=== PATIENT | female | born 1955 | race Caucasian/White ===

== ENCOUNTER 2020-04-19 22:41 | Emergency (ER) | payer OTHER ==
[2020-04-19 23:07] VITALS: BP 99/72; PULSE 100; TEMP 98.1; BMI 24.4
--- OUTSIDE RECORDS SUMMARY | 2020-04-19 23:10 | XMS ---
:1955 Author Organization [facility] Care Team Providers Name Role Phone [id number], [id number] Unavailable Unavailable ADIA AMOS MD Unavailable Unavailable CORNELL BOWER Unavailable Unavailable MD REGINA Unavailable Unavailable HASTICK Unavailable Unavailable Coon Unavailable Unavailable Coon Unavailable Unavailable Coon Unavailable Unavailable Coon Unavailable Unavailable Coon Unavailable Unavailable Coon Unavailable Unavailable [facility] Unavailable Unavailable Perla Unavailable Unavailable Perla Unavailable Unavailable Perla Unavailable Unavailable Perla Unavailable Unavailable Re-disclosure Warning The records that you are about to access may contain information from federally- assisted alcohol or drug abuse programs. If such information is present, then the following federally mandated warning applies: This information has been disclosed to you from records protected by federal confidentiality rules (42 CFR part 2). The federal rules prohibit you from making any further disclosure of this information unless further disclosure is expressly permitted by the written consent of the person to whom it pertains or as otherwise permitted by 42 CFR part 2. A general authorization for the release of medical or other information is NOT sufficient for this purpose. The Federal rules restrict any use of the information to criminally investigate or prosecute any alcohol or drug abuse patient.The records that you are about to access may contain highly sensitive health information, the redisclosure of which is protected by Article 27-F of the [place] State Public Health law. If you continue you may haveaccess to information: Regarding HIV / AIDS; Provided by facilities licensed or operated by the [facility] Office of Mental Health; or Provided by the [facility] Office for People With Developmental Disabilities. If such information is present, then the following [facility] mandated warning applies: This information has been disclosed to you from confidential records which are protected by state law. State law prohibits you from making any further disclosure of this information without the specific written consent of the person to whom it pertains, or as otherwise permitted by law. Any unauthorized further disclosure in violation of state law may result in a fine or usp sentence or both. A general authorization for the release of medical or other information is NOT sufficient authorization for further disclosure. Allergies and Adverse Reactions Type Description Substance Reaction Status Data Source(s ) Propensity to Propensity to Propensity to NEXTG EN ([facility] adverse reactions adverse reactions adverse reactions [facility] (disorder) (disorder) (disorder) [facility]) Family History Family Member Family Member Family Member Date of Description Data Source(s) Name Gender Status Status Unknown Male Diagnosis 07/17/2018 [facility] ([facility] 12:00:00 AM [facility]) Encounters Encounter Providers Location Date Indications Data Source(s ) Outpatient Attender: [id number] 02/20/2020 [facility] ([facility] 11:35:19 AM Care [facility]) EDT Patient admitted. Outpatient Attender: [address] 09/10/2019 10:22:03 AM [facility] ([facility]) Patient admitted. Outpatient Attender: [address] 09/08/2019 11:59:43 AM [facility] ([facility]) Patient admitted. Attender: [facility] 12/16/2018 [facility] ([facility] 10:24:00 AM EDT - [facility] Medical 12/16/2018 [facility]) 10:24:00 AM EDT Outpatient 11/03/2018 [facility] ([place] 02:37:40 PM [facility]) Outpatient 11/03/2018 [facility] ([place] 02:37:24 PM [facility]) Outpatient Attender: SATHISH Otoole 10/06/2018 [facility] 10:32:00 AM EDT Medical C enter AMMIRAdmitter: SATHISH SARABIA AMMIRReferrer: AMMIJa SARABIA AMMIR OutpatientOFFICE/ Attender: Wanda Brambila 10/06/2018 [facility] ([facility] OUTPATIENT VISIT, [facility] [place] 10:32:00 AM EDT - [facility] 10/06/2018 Center) 10:32:00 AM EDT Outpatient 10/06/2018 [facility] 10:29:00 AM EDT Medical C enter Outpatient 10/06/2018 [facility] 12:00:00 AM EDT Medical C enter Outpatient STV 09/19/2018 [facility] 10:43:00 AM EST Hospital Attender: 09/19/2018 [facility] [id number] 10:43:00 AM EST Hos pital [id number] Attender: Millis 09/10/2018 [facility] ([facility] 10:16:00 AM EST [facility] 09/10/2018 Center) 10:16:00 AM EST OutpatientOFFICE/ [facility] 07/17/2018 [facility] ([facility] OUTPATIENT VISIT, [facility] [place] 09:27:00 AM EST [facility] 07/17/2018 Center) 09:27:00 AM EST Outpatient Attender: DANDRE REESE 06/05/2018 [facility] herman DASAttender: 09:00:00 AM EST - Hospi sumit CHEEK 04/05/2020 KELLEHERAdmitter 09:00:00 AM EDT : ADELA ZAPATA Discharge cancelled. Disregard status an d discharged date. Attender: [id number] 2017 09:00:00 [facility] Veronica [id number] AM EST Hospital Attender: [id number] 2017 09:13:00 [facility] [id number] AM EDT Hospital Attender: [id number] 2017 10:35:00 [facility] [id number] AM EDT Hospital Attender: [id number] 2017 01:46:00 [facility] SALMERON_[id number] PM EDT Hospital Attender: [id number] 2009 09:25:00 [facility] SALMERON_[id number] AM EDT Hospital Attender: [id number] 2009 07:48:00 [facility] SALMERON_[id number] PM EDT Hospital Attender: [id number] 2006 12:00:00 [facility] SALMERON_[id number] AM EST Hospital Medications Medication Brand Start Product Dose Route Administrative Pharmacy [facility] Indications Reaction Description Data Name Date Form Instructions Instructions Source(s) duloxetine DULoxe ORAL complet DULoxet ine [facility] 40 MG jose l 2019 Capsu ed HCl - 40 MG [facility] Delayed HCl - 12:00: le ORAL Hospital Release 40 MG 00 AM Capsule, Oral ORAL EDT Delayed Capsule Capsul Release e, Delaye d Releas e duloxetine DULoxe ORAL complet DULoxet ine [facility] 40 MG jose l 2019 Capsu ed HCl - 40 MG [facility] Delayed HCl - 12:00: le ORAL Hospital Release 40 MG 00 AM Capsule, Oral ORAL EDT Delayed Capsule Capsul Release e, Delaye d Releas e duloxetine Cymbal ORAL complet Cymbalt a - [facility] 20 MG 2019 Capsu ed 20 MG ORAL [facility] Delayed 20 MG 12:00: le Capsule, Hospi sumit Release ORAL 00 AM Delayed Oral Capsul EDT Release Capsule e, [Cymbalta] Delaye d Releas e Trazodone traZOD ORAL complet traZODon e [facility] Hydrochlori one 2019 Table ed hydrochlorid [facility] 150 MG hydroc 12:00: t e - 150 MG Hospital Oral Tablet hlorid 00 AM ORAL Table t e - EDT 150 MG ORAL Tablet duloxetine Cymbal ORAL complet Cymbalt a - [facility] 20 MG 2019 Capsu ed 20 MG ORAL [facility] Delayed 20 MG 12:00: le Capsule, Hospi sumit Release ORAL 00 AM Delayed Oral Capsul EDT Release Capsule e, [Cymbalta] Delaye d Releas e duloxetine Cymbal ORAL complet Cymbalt a - [facility] 20 MG 2019 Capsu ed 20 MG ORAL [facility] Delayed 20 MG 12:00: le Capsule, Hospi sumit Release ORAL 00 AM Delayed Oral Capsul EDT Release Capsule e, [Cymbalta] Delaye d Releas e duloxetine Cymbal ORAL complet Cymbalt a - [facility] 20 MG 2019 Capsu ed 20 MG ORAL [facility] Delayed 20 MG 12:00: le Capsule, Hospi sumit Release ORAL 00 AM Delayed Oral Capsul EDT Release Capsule e, [Cymbalta] Delaye d Releas e Citalopram CeleXA ORAL complet CeleXA - 20 [facility] 20 MG Oral - 20 2019 Table ed MG ORAL [place] [facility] Tablet MG 12:00: t Tablet Hospital [Celexa] ORAL 00 AM Tablet EDT duloxetine DULoxe ORAL complet DULoxet ine [facility] 60 MG jose l 2018 Capsu ed HCl - 60 MG [facility] Delayed HCl - 12:00: le ORAL Hospital Release 60 MG 00 AM Capsule, Oral ORAL EST Delayed Capsule Capsul Release e, Delaye d Releas e Trazodone traZOD ORAL complet traZODon e [facility] Hydrochlori one 2018 Table ed hydrochlorid [facility] 50 MG hydroc 12:00: t e - 50 MG Ho spital Oral Tablet hlorid 00 AM ORAL Table t e - 50 EST MG ORAL Tablet duloxetine Cymbal ORAL complet Cymbalt a - [facility] 20 MG 2018 Capsu ed 20 MG ORAL [facility] Delayed 20 MG 12:00: le Capsule, Hospi sumit Release ORAL 00 AM Delayed Oral Capsul EST Release Capsule e, [Cymbalta] Delaye d Releas e Trazodone traZOD ORAL complet traZODon e [facility] Hydrochlori one 2018 Table ed hydrochlorid [facility] 100 MG hydroc 12:00: t e - 100 MG Hospital Oral Tablet hlorid 00 AM ORAL Table t e - EST 100 MG ORAL Tablet Trazodone traZOD ORAL complet traZODon e [facility] Hydrochlori one 2018 Table ed hydrochlorid [facility] 50 MG hydroc 12:00: t e - 50 MG Ho spital Oral Tablet hlorid 00 AM ORAL Table t e - 50 EDT MG ORAL Tablet duloxetine DULoxe ORAL complet DULoxet ine [facility] 60 MG jose l 2018 Capsu ed HCl - 60 MG [facility] Delayed HCl - 12:00: le ORAL Hospital Release 60 MG 00 AM Capsule, Oral ORAL EDT Delayed Capsule Capsul Release e, Delaye d Releas e Trazodone traZOD ORAL complet traZODon e [facility] 2018 Table ed hydrochlorid [facility] 100 MG hydroc 12:00: t e - 100 MG Hospital Oral Tablet hlorid 00 AM ORAL Table t e - EDT 100 MG ORAL Tablet duloxetine Cymbal ORAL complet Cymbalt a - [facility] 20 MG ta - 2018 Capsu ed 20 MG ORAL [facility] Delayed 20 MG 12:00: le Capsule, Hospi sumit Release ORAL 00 AM Delayed Oral Capsul EDT Release Capsule e, [Cymbalta] Delaye d Releas e duloxetine DULoxe ORAL complet DULoxet ine [facility] 60 MG jose l 2018 Capsu ed HCl - 60 MG [facility] Delayed HCl - 12:00: le ORAL Hospital Release 60 MG 00 AM Capsule, Oral ORAL EDT Delayed Capsule Capsul Release e, Delaye d Releas e Trazodone traZOD ORAL complet traZODon e [facility] 2018 Table ed hydrochlorid [facility] 100 MG hydroc 12:00: t e - 100 MG Hospital Oral Tablet hlorid 00 AM ORAL Table t e - EDT 100 MG ORAL Tablet duloxetine DULoxe ORAL complet DULoxet ine [facility] 60 MG jose l 2018 Capsu ed HCl - 60 MG [facility] Delayed HCl - 12:00: le ORAL Hospital Release 60 MG 00 AM Capsule, Oral ORAL EDT Delayed Capsule Capsul Release e, Delaye d Releas e duloxetine DULoxe ORAL complet DULoxet ine [facility] 60 MG jose l 2018 Capsu ed HCl - 60 MG [facility] Delayed HCl - 12:00: le ORAL Hospital Release 60 MG 00 AM Capsule, Oral ORAL EDT Delayed Capsule Capsul Release e, Delaye d Releas e Trazodone traZOD [facility]AL [facility] Table ed hydrochlorid [facility] 100 MG hydroc 12:00: t e - 100 MG Hospital Oral Tablet hlorid 00 AM ORAL Table t e - EDT 100 MG ORAL Tablet Trazodone traZOD [facility] Table ed hydrochlorid [facility] 150 MG hydroc 12:00: t e - 150 MG Hospital Oral Tablet hlorid 00 AM ORAL Table t e - EDT 150 MG ORAL Tablet duloxetine DULoxe ORAL complet DULoxet ine [facility] 60 MG jose l 2018 Capsu ed HCl - 60 MG [facility] Delayed HCl - 12:00: le ORAL Hospital Release 60 MG 00 AM Capsule, Oral ORAL EDT Delayed Capsule Capsul Release e, Delaye d Releas e duloxetine DULoxe ORAL complet DULoxet ine [facility] 60 MG jose l 2018 Capsu ed HCl - 60 MG [facility] Delayed HCl - 12:00: le ORAL Hospital Release 60 MG 00 AM Capsule, Oral ORAL EDT Delayed Capsule Capsul Release e, Delaye d Releas e Trazodone traZOD ORAL complet [facility] e [facility] 2018 Table ed hydrochlorid [facility] 150 MG hydroc 12:00: t e - 150 MG Hospital Oral Tablet hlorid 00 AM ORAL Table t e - EDT 150 MG ORAL Tablet Trazodone traZOD ORAL complet [facility]ODon e [facility] 2018 Table ed hydrochlorid [facility] 100 MG hydroc 12:00: t e - 100 MG Hospital Oral Tablet hlorid 00 AM ORAL Table t e - EDT 100 MG ORAL Tablet duloxetine DULoxe ORAL complet DULoxet ine [facility] 60 MG jose l 2018 Capsu ed HCl - 60 MG [facility] Delayed HCl - 12:00: le ORAL Hospital Release 60 MG 00 AM Capsule, Oral ORAL EDT Delayed Capsule Capsul Release e, Delaye d Releas e 200 ACTUAT ProAir .00 RESPIR active 200 AC TUAT NEXTGEN Albuterol HFA 90 2018 {puff ATORY Albuterol ( [facility] 0.09 mcg/ac 12:00: } (INHAL 0.09 [place] MG/ACTUAT tuatio 00 AM ATION) MG/ACTUAT Medical Metered n EDT Metered Dose Cent er) Dose aeroso Inhaler Inhaler l [ProAir] [ProAir] inhale ProAir HFA r 90 mcg/actuati on aerosol inhaler Guaifenesin Tussin .00 ORAL active take 1 NEXTGEN 400 MG Oral 400 mg 2019 {tbl} tablet by ([facility] Tablet tablet 12:00: oral route [facility] Tussin 400 00 AM every 4 Medic al mg tablet EDT hours as Center ) needed cetirizine Zyrtec .00 ORAL active take 1 N EXTGEN hydrochlori 10 mg 2019 {tbl} tablet by ( [facility] de 10 MG tablet 12:00: oral route [facility] Oral Tablet 00 AM every day Me dical Zyrtec 10 EDT Center) mg tablet Trazodone traZOD ORAL complet traZODon e [facility] Hydrochlori one 2018 Table ed hydrochlorid [facility] 150 MG hydroc 12:00: t e - 150 MG Hospital Oral Tablet hlorid 00 AM ORAL Table t e - EST 150 MG ORAL Tablet duloxetine DULoxe ORAL complet DULoxet ine [facility] 60 MG jose l 2019 Capsu ed HCl - 60 MG [facility] Delayed HCl - 12:00: le ORAL Hospital Release 60 MG 00 AM Capsule, Oral ORAL EST Delayed Capsule Capsul Release e, Delaye d Releas e Trazodone traZOD ORAL complet traZODon e [facility] Hydrochlori one 2018 Table ed hydrochlorid [facility] 100 MG hydroc 12:00: t e - 100 MG Hospital Oral Tablet hlorid 00 AM ORAL Table t e - EST 100 MG ORAL Tablet Trazodone traZOD ORAL complet traZODon e [facility] Hydrochlori one 2018 Table ed hydrochlorid [facility] 100 MG hydroc 12:00: t e - 100 MG Hospital Oral Tablet hlorid 00 AM ORAL Table t e - EST 100 MG ORAL Tablet duloxetine DULoxe ORAL complet DULoxet ine [facility] 60 MG jose l 2019 Capsu ed HCl - 60 MG [facility] Delayed HCl - 12:00: le ORAL Hospital Release 60 MG 00 AM Capsule, Oral ORAL EST Delayed Capsule Capsul Release e, Delaye d Releas e Trazodone traZOD ORAL complet traZODon e [facility] Hydrochlori one 2018 Table ed hydrochlorid [facility] 150 MG hydroc 12:00: t e - 150 MG Hospital Oral Tablet hlorid 00 AM ORAL Table t e - EST 150 MG ORAL Tablet Ibuprofen ibupro ORAL active take 1 NE XTGEN 400 MG Oral fen 2017 {tbl} tablet by (S aint Tablet 400 mg 12:00: oral route [facility] ibuprofen tablet 00 AM every 4 - 6 Medical 400 mg EST hours as Center) tablet needed 200 ACTUAT ProAir RESPIR complet 200 A CTUAT NEXTGEN Albuterol HFA 90 2017 {puff ATORY ed Albuterol ( [facility] 0.09 mcg/ac 12:00: } (INHAL 0.09 [place] MG/ACTUAT tuatio 00 AM ATION) MG/ACTUAT Medical Metered n EST Metered Dose Cent er) Dose aeroso Inhaler Inhaler l [ProAir] [ProAir] inhale ProAir HFA r 90 mcg/actuati on aerosol inhaler pregabalin Lyrica ORAL active pregabal in NEXTGEN 50 MG Oral 50 mg 2017 {caps 50 MG Oral ( [facility] Capsule capsul 12:00: ule} Capsule Jeet hs [Lyrica] e 00 AM [Lyrica] Medica l Lyrica 50 EST Center) mg capsule duloxetine Cymbal ORAL active duloxeti ne [facility]EXT[facility] 60 MG ta 60 2017 {caps 60 MG ([facility] Delayed mg 12:00: ule} Delayed [place] Release capsul 00 AM Release Oral M edical Oral e,jatin EST Capsule Center) Capsule yed [Cymbalta] [Cymbalta] releas Cymbalta 60 e mg capsule,del ayed release Azithromyci azithr ORAL complet take 2 NEXTGEN n 250 MG omycin 2017 {tbl} ed tablet by (Sa int Oral Tablet 250 mg 12:00: oral rout e [place] azithromyci tablet 00 AM every day Medical n 250 mg EST for 1 day Center ) tablet then 1 tablet (250 mg) by oral route once daily for 4 days Trazodone trazod 12/27/ 2 ORAL active take 2 NE XTGEN Hydrochlori one 2017 {tbl} tablet by (S aint de 100 MG 100 mg 12:00: oral route [place] Oral Tablet tablet 00 AM every day Medical trazodone EST after meals Real ter) 100 mg tablet Guaifenesin Tussin .00 ORAL complet take 1 NEXTGEN 400 MG Oral 400 mg 2017 {tbl} ed tablet by ([facility] Tablet tablet 12:00: oral route [facility] Tussin 400 00 AM every 4 Medic al mg tablet EST hours as Center ) needed Trazodone traZOD ORAL [facility] 2017 Table ed hydrochlorid [facility] 50 MG hydroc 12:00: t e - 50 MG Ho spital Oral Tablet hlorid 00 AM ORAL Table t e - 50 EST MG ORAL Tablet Trazodone traZOD ORAL complet traZODon e [facility] Hydrochlori 2017 Table ed hydrochlorid [facility] 150 MG hydroc 12:00: t e - 150 MG Hospital Oral Tablet hlorid 00 AM ORAL Table t e - EST 150 MG ORAL Tablet duloxetine DULoxe ORAL complet DULoxet ine [facility] 60 MG jose l 2018 Capsu ed HCl - 60 MG [facility] Delayed HCl - 12:00: le ORAL Hospital Release 60 MG 00 AM Capsule, Oral ORAL EST Delayed Capsule Capsul Release e, Delaye d Releas e duloxetine DULoxe ORAL complet DULoxet ine [facility] 60 MG jose l 2018 Capsu ed HCl - 60 MG [facility] Delayed HCl - 12:00: le ORAL Hospital Release 60 MG 00 AM Capsule, Oral ORAL EST Delayed Capsule Capsul Release e, Delaye d Releas e Trazodone traZOD ORAL complet [facility] e [facility] 2017 Table ed hydrochlorid [facility] 150 MG hydroc 12:00: t e - 150 MG Hospital Oral Tablet hlorid 00 AM ORAL Table t e - EST 150 MG ORAL Tablet Trazodone traZOD ORAL complet traZODon e [facility] Hydrochlori 2017 Table ed hydrochlorid [facility] 100 MG hydroc 12:00: t e - 100 MG Hospital Oral Tablet hlorid 00 AM ORAL Table t e - EST 100 MG ORAL Tablet duloxetine DULoxe 10/31/ 1 ORAL complet DULoxet ine [facility] 60 MG jose l 2018 Capsu ed HCl - 60 MG [facility] Delayed HCl - 12:00: le ORAL Hospital Release 60 MG 00 AM Capsule, Oral ORAL EDT Delayed Capsule Capsul Release e, Delaye d Releas e Trazodone traZOD ORAL complet traZODon e [facility] Hydrochlori one 2017 Table ed hydrochlorid [facility] 50 MG hydroc 12:00: t e - 50 MG Ho spital Oral Tablet hlorid 00 AM ORAL Table t e - 50 EDT MG ORAL Tablet duloxetine DULoxe ORAL complet DULoxet ine [facility] 30 MG jose l 2017 Capsu ed HCl - 30 MG [facility] Delayed HCl - 12:00: le ORAL Hospital Release 30 MG 00 AM Capsule, Oral ORAL EDT Delayed Capsule Capsul Release e, Delaye d Releas e Insurance Providers Payer name Policy type Policy ID Covered Covered democrat's Policy P oraila / Coverage democrat ID relationship to Vásquez Inf ormation type vásquez HIP MEDICAID [id number] SP [id number] [facility] MVP [id number] Self [id number] 500 [employer] MVP [id number] Self [id number] 500 HARMONIOUS MEDICAID OP [id number] Self [id number] SELF PAY 0 Self 0 [facility] MVP [id number] Self [id number] 500 HARMONIOUS SELF PAY 0 Self 0 MEDICAID OP [id number] Self [id number] [facility] MVP [id number] Self [id number] 500 [employer] [facility] MVP [id number] Self [id number] 500 [employer] [place] MVP/HHP [id number] self [id number] MVP/HHP O [id number] 01 [id number] 500 MVP/HHP O [id number] 01 [id number] 500 Problems, Conditions, and Diagnoses Code Display Name Description Problem Type Effective Dates Data Source(s) 085961571 Nicotine Nicotine Problem ROSANA ( dependence with dependence with [facility] current use current use Medical Center) R06.02 Shortness of SHORTNESS OF Diagnosis 10/06/2018 [facility] breath BREATH 10:32:00 AM EDT Medical C enter Surgeries/Procedures Procedure Description Date Indications Data Source(s) OFFICE/OUTPATIENT 10/06/2018 ROSANA Jarrett VISIT, EST 12:00:00 AM EDT - Medical Ce nter) 10/06/2018 12:00:00 AM EDT OFFICE/OUTPATIENT 07/17/2018 NEXTGEN (Moira Jarrett VISIT, NEW 12:00:00 AM EST - Medical Ce nter) 07/17/2018 12:00:00 AM EST Social History Code Duration Value Status Description Data Source(s ) Caffeine Use 10/06/2018 completed NEXTGEN (Sy nt Details 12:00:00 AM [facility]) 10/06/2018 Occasional completed Occasional [facility] ([facility] 12:00:00 AM cigarette smoker cigarette smoker [facility]) Smoking 10/06/2018 Unknown if ever completed Unknown if ever [facility] ([facility] 12:00:00 AM smoked smoked [facility]) Smoking 06/05/2018 Current Every completed Current Every Day [facility] 12:00:00 PM Day Smoker Smoker Hospital EST Smoking 06/05/2018 Current Every completed Current Every Day [facility] 12:00:00 PM Day Smoker Smoker Hospital EST Smoking 06/05/2018 Current Every completed Current Every Day [facility] 12:[facility]:00 PM Day Smoker Smoker Hospital EST Smoking 06/05/2018 Current Every completed Current Every Day [facility] 12:00:00 PM Day Smoker Smoker Hospital EST Smoking 06/05/2018 Current Every completed Current Every Day [facility] 12:00:00 PM Day Smoker Smoker Hospital EST Smoking 06/05/2018 Current Every completed Current Every Day [facility] 12:00:00 PM Day Smoker Smoker Hospital EST Smoking Unknown if ever completed Unknown if ever [facility] smoked smoked [facility] Center Alcohol Use completed NEXT[facility] ([facility]) Vital Signs ID Date Data Source UNK Name Value Range Interpretation Code Description Data Source(s) Oxygen saturation 97 % 97 % [facility] in Arterial blood [facility] by Pulse oximetry [facility]) Body mass index 24.27 kg/m2 24.27 kg/m2 [facility] ([facility]) Body temperature 36.[address] [facility] ([facility]) Heart rate 86 /min 86 /min [facility] ([facility]) Diastolic blood 58 mm[Hg] 58 mm[Hg] [facility] ( [facility]) Systolic blood 110 mm[Hg] 110 mm[Hg] [facility] Body weight 62.[address] [facility] ([facility]) Body height 160.[address] [facility] ([facility]) Oxygen saturation 96 % 96 % NEXTGEN ([facility] in Arterial blood [facility] by Pulse [facility]) Body mass index 24.45 kg/m2 24.45 kg/m2 [facility] ([facility] (BMI) [Ratio] [facility]) Body temperature 36.89 Ksenia 36.89 Ksenia [facility] Heart rate 77 /min 77 /min [facility] ([facility]) Diastolic blood 72 mm[Hg] 72 mm[Hg] [facility] ( [facility]) Systolic blood 121 mm[Hg] 121 mm[Hg] [facility] Body weight 62.[address] [facility] ([facility]) Body height 160.[address] [facility] ([facility]) Patient Treatment Plan of Care Planned Activity Planned Date Details Description Data Source (s) cetirizine hydrochloride 10/06/2018 12:00:00 [facility]EXT[facility] ([facility] 10 MG Oral Tablet [facility]) 200 ACTUAT Albuterol 0.09 10/06/2018 12:00:00 NEXT[facility] ([facility] MG/ACTUAT Metered Dose [facility] Medical Inhaler [ProAir] Center) Guaifenesin 400 MG Oral 10/06/2018 12:00:00 [facility]EXT[facility] ([facility] Tablet AM [facility]) Ibuprofen 400 MG Oral 07/17/2018 12:00:00 [facility] Tablet [facility]) Trazodone Hydrochloride 07/17/2018 12:00:00 [facility] 100 MG Oral Tablet [facility]) pregabalin 50 MG Oral 07/17/2018 12:00:00 [facility] Capsule [Lyrica] [facility]) duloxetine 60 MG Delayed 07/17/2018 12:00:00 [facility]EXT[facility] ([facility] Release Oral Capsule [facility] [[facility]] [facility]) Guaifenesin 400 MG Oral 07/17/2018 12:00:00 [facility] ([facility] Tablet [facility]) 200 ACTUAT Albuterol 0.09 07/17/2018 12:00:00 NEXTGEN ([facility] MG/ACTUAT Metered Dose [facility] Inhaler [ProAir] [facility]) Azithromycin 250 MG Oral 07/17/2018 12:00:00 [facility] ([facility] Tablet [facility])
--- NOTE | 2020-04-19 23:36 | PDOC ---
History of Present Illness - General Chief Complaint: Laceration Stated Complaint: FINGER LACERATION Time Seen by Provider: 04/19/20 23:34 History Source: Patient - History of Present Illness Initial Comments: 04/20/20 00:25 64-year-old female complaining of distal tip proximal to the nail of the left index finger laceration after crushing it in between a brick and a metal piece 1 hour prior to arrival. Patient reports that her tetanus is up-to-date. Reports sensation to the distal end of finger and full ROM. Past History - Medical History Allergies/Adverse Reactions: Allergies Allergy/AdvReac Type Severity Reaction Status Date / Time duloxetine Allergy Verified 04/20/20 00:31 Home Medications: Ambulatory Orders Cephalexin Monohydrate [Keflex -] 250 mg PO Q8H #21 capsule 04/20/20 Asthma: Yes COPD: No - Psycho-Social/Smoking History Smoking History: Current every day smoker Have you smoked in the past 12 months: Yes Number of Cigarettes Smoked Daily: 10 Information on smoking cessation initiated: Yes - Substance Abuse Hx (Audit-C & DAST Scrn) How often the patient has a drink containing alcohol: Monthly or less Score: In Men: 4 or > Positive; In Women: 3 or > Positive: 1 Screen Result (Pos requires Nsg. Audit-10AR): Negative *Physical Exam - Vital Signs Last Vital Signs Temp Pulse Resp BP Pulse Ox 98.1 F 100 H 20 99/72 99 04/19/20 22:50 04/19/20 22:50 04/19/20 22:50 04/19/20 22:50 04/19/20 22:50 - Physical Exam General Appearance: Yes: Appropriately Dressed Extremity: positive: Other (left index dital tip proximal to the nail) Integumentary: positive: Normal Color, Dry, Warm Neurologic: positive: Fully Oriented, Alert Procedures - Consent Consent obtained: Verbal, From Patient - Laceration/Wound Repair Left Distal Dorsal 1st digit Wound Length: to 2.5 cm Wound Explored: clean Wound's Depth, Shape: irregular Irrigated w/ Saline: Yes Betadine Prep: Yes Anesthesia: 1% Lidocaine Wound Debrided: minimal Wound Repaired With: Sutures Suture Size/Type: 4:0 Number of Sutures: 5 Layer Closure: No Sterile Dressing Applied: Yes (bacitracin and sterile dressing applied) ED Progress Note - Progress Note Progress Note: 04/20/20 00:28 A: finger laceration P: xray: see procedure note. Discharge - Discharge Information Problems reviewed: Yes Clinical Impression/Diagnosis: Laceration of finger of left hand Qualifiers: Encounter type: initial encounter Finger: index finger Damage to nail status: without damage Foreign body presence: without foreign body Qualified Code(s): S61.211A - Laceration without foreign body of left index finger without damage to nail, initial encounter Condition: Good Disposition: HOME - Additional Discharge Information Prescriptions: Cephalexin Monohydrate [Keflex -] 250 mg PO Q8H #21 capsule - Follow up/Referral - Patient Discharge Instructions Patient Printed Discharge Instructions: DI for Laceration Repair Additional Instructions: Keep area clean dry and intact Keep dressing on until tomorrow please follow up with your doctor in 2 days for a wound check take cephalexin as prescribed. If any increased bleeding through the dressing return immediately to emergency department Keep area clean dry and intact bacitracin x3 days, then let it dry out Please return in 10 days for suture removal. Please return immediately to emergency department with any increased redness, swelling, signs of infection - Post Discharge Activity
--- NOTE | 2020-04-19 23:38 | PDOC ---
*Physical Exam - Vital Signs Last Vital Signs Temp Pulse Resp BP Pulse Ox 98.1 F 100 H 20 99/72 99 04/19/20 22:50 04/19/20 22:50 04/19/20 22:50 04/19/20 22:50 04/19/20 22:50 Medical Decision Making - Medical Decision Making 04/19/20 23:38 Patient seen by the advanced practice provider under my supervision. Ancillary testing reviewed as necessary. I agree with plan as outlined by the advanced practice provider.
[2020-04-20] MEDS ORDERED: ACETAMINOPHEN 500 MG TABLET (FP) PO ONE (00:32)
[2020-04-20] MEDS ORDERED: ACETAMINOPHEN 325 MG TABLET (FP) ONE (00:37)
== END 2020-04-20 01:02 | disposition home or self-care (01) ==
LOC: JER 22:41
PROC: 0HQGXZZ Repair Left Hand Skin, External Approach (ICD-10-PCS; principal; 2020-04-19)
DX: S61.211A Laceration without foreign body of left index finger without damage to nail, initial encounter (principal)
CPT/HCPCS: 12001-25; 73140-TC-LT-FY; 99283-25

== ENCOUNTER 2022-02-27 15:45 | Emergency (ER) | payer OTHER ==
[2022-02-27 16:05] VITALS: BP 160/79; PULSE 82; RESP 16; TEMP 97.9; BMI 22.8
[2022-02-27] MEDS ORDERED: ACETAMINOPHEN 500 MG TABLET (FP) PO ONE (18:27)
[2022-02-27] MEDS ORDERED: ACETAMINOPHEN 500 MG TABLET (FP) ONE (18:43)
[2022-02-27 19:28] LABS: PH,URINE 5.5 (5.0-8.0); URINE APPEARANCE CLEAR; URINE BILIRUBIN NEGATIVE (NEGATIVE); URINE COLOR YELLOW; URINE GLUCOSE (UA) NEGATIVE (NEGATIVE); URINE KETONE NEGATIVE (NEGATIVE); URINE NITRITE NEGATIVE (NEGATIVE); URINE PROTEIN NEGATIVE (NEGATIVE); URINE UROBILINOGEN 0.2 mg/dL (0.2-1.0)
[2022-02-27 19:29] LABS: URINE LEUK ESTERASE TRACE (NEGATIVE)
== END 2022-02-27 20:00 | disposition home or self-care (01) ==
LOC: JER 15:45
DX: R10.31 Right lower quadrant pain (principal)
CPT/HCPCS: 81003; 87086; 99283-25

== ENCOUNTER 2022-03-07 14:27 | Emergency (ER) | payer OTHER ==
[2022-03-07 15:05] VITALS: BP 152/84; PULSE 77; RESP 20; TEMP 98.2; BMI 21.9
[2022-03-07] MEDS ORDERED: ACETAMINOPHEN 1000 MG/100 ML BAG IVPB ONE (15:30)
[2022-03-07] MEDS ORDERED: ACETAMINOPHEN INJECTION 100 ML IVPB ONE (15:49)
[2022-03-07 15:59] LABS: HEMATOCRIT 46.4 % (32.4-45.2); HEMOGLOBIN 15.7 G/dL (10.7-15.3); MCH 29.4 pg (25.7-33.7); MCHC 33.8 g/dl (32.0-36.0); MEAN CELL VOLUME 86.8 fl (80-96); MEAN PLT VOLUME 8.6 fl (7.5-11.1); RBC 5.34 10^6/uL (3.60-5.2); RDW 14.3 % (11.6-15.6); WHITE BLOOD COUNT 4.9 10^3/uL (4.0-10.8)
[2022-03-07 16:18] LABS: BILIRUBIN,TOTAL 0.8 mg/dl (0.2-1); CALCIUM 9.5 mg/dl (8.5-10); CREATININE 0.5 mg/dl (0.55-1.3); TOT PROT 6.6 g/dl (6.4-8.2)
[2022-03-07 16:52] LABS: PLATELET ESTIMATE ADEQUATE
[2022-03-07] MEDS ORDERED: KETOROLAC TROMETHAMINE 15 MG/ML VIAL IVPUSH ONE (17:25)
[2022-03-07] MEDS ORDERED: KETOROLAC TROMETHAMINE 15 MG/ML VIAL ONE (18:02)
== END 2022-03-07 19:01 | disposition home or self-care (01) ==
LOC: FER 14:27
PROC: 3E0333Z Introduction of Anti-inflammatory into Peripheral Vein, Percutaneous Approach (ICD-10-PCS; principal; 2022-03-07)
PROC: 3E0333Z Introduction of Anti-inflammatory into Peripheral Vein, Percutaneous Approach (ICD-10-PCS; 2022-03-07)
DX: K40.90 Unilateral inguinal hernia, without obstruction or gangrene, not specified as recurrent (principal)
CPT/HCPCS: 36415; 74177-TC; 80053; 81003; 83690; 85027; 87086; 99285-25; Q9967

== ENCOUNTER 2022-04-19 04:00 | Day surgery (SDC) | payer OTHER ==
[2022-04-18 16:36] VITALS: BMI 22.4
[2022-04-19] MEDS ORDERED: LIDOCAINE HCL/PF (2%) 40 MG/2 ML VIAL ONE (07:31)
[2022-04-19] MEDS ORDERED: PROPOFOL 20 ML ONE (07:31)
[2022-04-19] MEDS ORDERED: LIDOCAINE HCL 1%, 10 MG/ML (20ML VIAL) ONE (07:31)
[2022-04-19] MEDS ORDERED: BENZOIN/ALOE VERA/STORAX/TOLU 58 ML BOTTLE ONE (07:32)
[2022-04-19] MEDS ORDERED: ROCURONIUM BROMIDE 50 MG/5 ML SYRINGE ONE (07:32)
[2022-04-19] MEDS ORDERED: BUPIVACAINE HCL/PF 0.5% (5MG/ML) 10 ML VIAL ONE ×2 (07:32→07:54)
[2022-04-19] MEDS ORDERED: SEVOFLURANE 250 ML BTL ONE (07:33)
[2022-04-19] MEDS ORDERED: MIDAZOLAM HCL 2 MG/2 ML SINGLE DOSE VIAL ONE (07:35)
[2022-04-19] MEDS ORDERED: DEXAMETHASONE SOD PHOSPHATE 10 MG/1 ML VIAL ONE (07:54)
[2022-04-19] MEDS ORDERED: ceFAZolin 2 GRAM PREMIX BAG IVPB ONE (08:29)
[2022-04-19] MEDS ORDERED: KETAMINE HCL 200 MG/20 ML VIAL ONE (08:31)
[2022-04-19] MEDS ORDERED: LIDOCAINE HCL 1%, 10 MG/ML (20ML VIAL) INF ONE (08:40)
[2022-04-19] MEDS ORDERED: BUPIVACAINE HCL/PF 0.5% (5MG/ML) 10 ML VIAL IJ ONE (08:40)
[2022-04-19] MEDS ORDERED: NEOSTIGMINE METHYLSULFATE 0.5 MG/ML - 10 ML MDV ONE (09:29)
[2022-04-19] MEDS ORDERED: GLYCOPYRROLATE 0.2 MG/1 ML VIAL ONE (09:29)
[2022-04-19] MEDS ORDERED: oxyCODONE HCL 5 MG TABLET PO PRN (10:42)
[2022-04-19] MEDS ORDERED: ONDANSETRON 4 MG/2 ML VIAL IVPUSH PRN (10:42)
[2022-04-19] MEDS ORDERED: ACETAMINOPHEN 1000 MG/100 ML BAG IVPB ONE (10:43)
[2022-04-19] MEDS ORDERED: LACTATED RINGERS SOLUTION 1,000 ML IV SCH (10:45)
[2022-04-19] MEDS ORDERED: ALBUTEROL SO4 0.083% IH SOL 2.5 MG/3 ML VIAL.NEB. NEB ONE ×2 (12:00→12:10)
[2022-04-19] MEDS ORDERED: oxyCODONE HCL 5 MG TABLET ONE (12:49)
[2022-04-19 13:06] VITALS: RESP 18
[2022-04-19 14:49] VITALS: BP 108/71; PULSE 65; TEMP 97.9
== END 2022-04-19 15:15 | disposition home or self-care (01) ==
LOC: JASU-SURG 04:00
PROVIDERS: ATTEND Surgery
PROC: 0YUA0JZ Supplement Bilateral Inguinal Region with Synthetic Substitute, Open Approach (ICD-10-PCS; principal; 2022-04-19 08:37)
DX: K40.20 Bilateral inguinal hernia, without obstruction or gangrene, not specified as recurrent (principal)
CPT/HCPCS: 88302-TC; 88304-TC; 94760; C1781; J1100

== ENCOUNTER 2022-05-09 14:37 | Emergency (ER) | payer OTHER ==
[2022-05-09 14:42] VITALS: BP 124/73; PULSE 72; RESP 18; TEMP 98.1; BMI 22.8
[2022-05-09] MEDS ORDERED: SODIUM CHLORIDE 0.9% 500 ML INFUS.BAG IV ONE (15:36)
[2022-05-09] MEDS ORDERED: KETOROLAC TROMETHAMINE 30 MG/1 ML VIAL IVPUSH ONE (15:36)
[2022-05-09] MEDS ORDERED: METOCLOPRAMIDE HCL INJECTION 10 MG/2 ML VIAL IVPUSH ONE ×2 (15:36→19:41)
[2022-05-09] MEDS ORDERED: METOCLOPRAMIDE HCL INJECTION 10 MG/2 ML VIAL ONE ×2 (15:52→19:48)
[2022-05-09] MEDS ORDERED: KETOROLAC TROMETHAMINE 30 MG/1 ML VIAL ONE (15:53)
[2022-05-09 17:36] LABS: BASO % 0.4 % (0-2.0); EOS % 0.3 % (0-4.5); HEMATOCRIT 44.3 % (32.4-45.2); HEMOGLOBIN 15.1 GM/dL (10.7-15.3); LYMPH % 13.6 % (8-40); MCH 29.7 pg (25.7-33.7); MCHC 34.1 g/dl (32.0-36.0); MEAN CELL VOLUME 87.1 fl (80-96); MEAN PLT VOLUME 8.9 fl (7.5-11.1); NEUT % 80.7 % (42.8-82.8); PLATELET COUNT 244 10^3/uL (134-434); RBC 5.08 M/mm3 (3.60-5.2); RDW 13.6 % (11.6-15.6); WHITE BLOOD COUNT 7.3 K/mm3 (4.0-10.0)
[2022-05-09] MEDS ORDERED: ACETAMINOPHEN 1000 MG/100 ML BAG IVPB ONE (17:39)
[2022-05-09 18:06] LABS: ALBUMIN 3.9 g/dl (3.4-5.0); BILIRUBIN,TOTAL 0.7 mg/dL (0.2-1); CALCIUM 9.2 mg/dL (8.5-10.1); CREATININE 0.5 mg/dL (0.55-1.3)
[2022-05-09] MEDS ORDERED: ACETAMINOPHEN INJECTION 100 ML IVPB ONE (19:11)
[2022-05-09] MEDS ORDERED: SUMATRIPTAN SUCCINATE 6 MG/0.5 ML VIAL SQ ONE (19:52)
[2022-05-09] MEDS ORDERED: SUMATRIPTAN SUCCINATE 6 MG/0.5 ML VIAL ONE (19:54)
== END 2022-05-09 22:15 | disposition home or self-care (01) ==
LOC: JER 14:37
PROC: 3E033GC Introduction of Other Therapeutic Substance into Peripheral Vein, Percutaneous Approach (ICD-10-PCS; principal; 2022-05-09)
DX: G43.909 Migraine, unspecified, not intractable, without status migrainosus (principal)
CPT/HCPCS: 36415; 70450-TC; 80053; 85025; 99285-25

== ENCOUNTER 2022-07-07 14:26 | Emergency (ER) | payer OTHER ==
[2022-07-07 14:40] VITALS: BP 127/78; PULSE 85; RESP 18; TEMP 98.9; BMI 23.0
[2022-07-07] MEDS ORDERED: ACETAMINOPHEN 325 MG TABLET (FP) PO ONE (14:52)
[2022-07-07] MEDS ORDERED: ACETAMINOPHEN 325 MG TABLET (FP) ONE (14:59)
== END 2022-07-07 16:29 | disposition home or self-care (01) ==
LOC: FER 14:26
DX: M79.671 Pain in right foot (principal)
CPT/HCPCS: 73630-TC-RT-FY; 99283-25

== ENCOUNTER 2024-06-30 17:42 | Inpatient (IN) | payer OTHER ==
[2024-06-30] MEDS ORDERED: ALBUTEROL SO4 2.5/IPRATROPIUM 0.5 INH SOL 3 ML VIAL.NEB. NEB ONE (18:03)
[2024-06-30] MEDS: ALBUTEROL SO4 2.5/IPRATROPIUM 0.5 INH SOL 3 ML VIAL.NEB. NEB SCH (18:06)
[2024-06-30] MEDS: methylPREDNISolone NA SUCC 125 MG/2 ML VIAL IVPUSH ONE (18:33)
[2024-06-30] MEDS ORDERED: methylPREDNISolone NA SUCC 125 MG/2 ML VIAL ONE (18:34)
[2024-06-30 18:41] LABS: HEMATOCRIT 41.6 % (32.4-45.2); HEMOGLOBIN 13.8 G/dL (10.7-15.3); MCH 29.5 pg (25.7-33.7); MCHC 33.2 g/dl (32.0-36.0); MEAN CELL VOLUME 88.6 fl (80-96); MEAN PLT VOLUME 9.4 fl (7.5-11.1); PLATELET COUNT 137.2 10^3/uL (134-434); RBC 4.69 10^6/uL (3.60-5.2); WHITE BLOOD COUNT 7.5 10^3/uL (4.0-10.8)
[2024-06-30 18:52] LABS: PLATELET ESTIMATE ADEQUATE
[2024-06-30 18:58] LABS: BILIRUBIN,TOTAL 0.4 mg/dl (0.2-1); CALCIUM 8.9 mg/dl (8.5-10.1); CREATININE 0.5 mg/dl (0.6-1.3); MAGNESIUM 1.7 mg/dL (1.8-2.4); TOT PROT 6.2 g/dl (6.4-8.2)
[2024-06-30] MEDS: MAGNESIUM SULFATE IN WATER 2 GM/50 ML IVPB IVPB ONE (19:25)
[2024-06-30] MEDS: SODIUM CHLORIDE 0.9% 500 ML INFUS.BAG IV ONE (19:26)
[2024-06-30 20:21] LABS: VENOUS BASE EXCESS 1.5 mmol/L (-2-2); VENOUS PCO2 50.2 mmHg (38-52); VENOUS PH 7.362 (7.310-7.410)
[2024-06-30] MEDS ORDERED: AZITHROMYCIN 500 MG VIAL IVPB ONE (22:27)
[2024-06-30] MEDS ORDERED: cefTRIAXone SODIUM 1 GM VIAL ONE ×2 (22:27→22:28)
[2024-06-30] MEDS: AZITHROMYCIN IVPB 500 MG in DEXTROSE 5%-WATER - 250 ML IVPB ONE (23:00)
[2024-06-30] MEDS ORDERED: DOCUSATE SODIUM 100 MG CAPSULE (FP) PO PRN (23:10)
[2024-06-30] MEDS ORDERED: ACETAMINOPHEN 500 MG TABLET (FP) PO PRN (23:10)
[2024-07-01] MEDS: AZITHROMYCIN IVPB 500 MG in DEXTROSE 5%-WATER - 250 ML IVPB SCH (03:42)
[2024-07-01 03:54] VITALS: BMI 22.6
[2024-07-01] MEDS ORDERED: CYCLOBENZAPRINE HCL 10 MG TABLET (FP) PO PRN (06:13)
[2024-07-01] MEDS ORDERED: ALBUTEROL SO4 2.5/IPRATROPIUM 0.5 INH SOL 3 ML VIAL.NEB. NEB PRN (06:16)
[2024-07-01] MEDS ORDERED: ACETAMINOPHEN 500 MG TABLET (FP) PO PRN (07:41)
[2024-07-01] MEDS: ALBUTEROL SO4 2.5/IPRATROPIUM 0.5 INH SOL 3 ML VIAL.NEB. NEB SCH (08:09)
[2024-07-01] MEDS: methylPREDNISolone NA SUCC 40 MG/1 ML VIAL IVPUSH SCH (08:09)
[2024-07-01] MEDS ORDERED: CYCLOBENZAPRINE HCL 5 MG TABLET PO PRN (08:20)
[2024-07-01 08:35] LABS: INR 1.01 (0.83-1.09); PROTHROMBIN TIME (PATIENT) 11.5 SEC (9.7-13.0)
[2024-07-01] MEDS: CEFTRIAXONE 1 G/50 ML PREMIX 50 ML IVPB SCH (09:36)
[2024-07-01] MEDS ORDERED: IPRATROPIUM BR 0.02% 0.5 MG/2.5 ML VIAL.NEB. NEB PRN (09:36)
[2024-07-01] MEDS: NICOTINE 21 MG/24 HOURS TOPICAL PATCH TD SCH (09:38)
[2024-07-01] MEDS: LIDOCAINE 5% TOPICAL PATCH TP SCH (09:38)
[2024-07-01] MEDS: ENOXAPARIN NA (PORCINE) 40 MG/0.4 ML DISP.SYRIN SQ SCH (09:39)
[2024-07-01] MEDS: ALBUTEROL SO4 0.5 % INH SOLN 2.5 MG/0.5 ML VIAL.NEB. NEB SCH (09:41)
[2024-07-01 09:50] LABS: CALCIUM 9.4 mg/dl (8.5-10.1); CREATININE 0.6 mg/dl (0.6-1.3); POTASSIUM 5.3 mmol/L (3.5-5.1)
[2024-07-01] MEDS ORDERED: FLUTICASONE/UMECLIDIN/VILANTER(200-62.5-25 TRELEGY ELLIPTA) INAHLER IH SCH (10:00)
[2024-07-01] MEDS: ALBUTEROL SO4 0.083% IH SOL 2.5 MG/3 ML VIAL.NEB. NEB SCH (10:41)
[2024-07-01 10:53] LABS: BASO % 0.2 % (0-2.0); HEMATOCRIT 39.8 % (32.4-45.2); HEMOGLOBIN 13.5 GM/dL (10.7-15.3); LYMPH % 13.3 % (8-40); MEAN CELL VOLUME 88.1 fl (80-96); MEAN PLT VOLUME 8.9 fl (7.5-11.1); MONO % 11.1 % (3.8-10.2); NEUT % 75.4 % (42.8-82.8); PLATELET COUNT 152 10^3/uL (134-434); RBC 4.51 M/mm3 (3.60-5.2); WHITE BLOOD COUNT 4.7 K/mm3 (4.0-10.0)
[2024-07-01] MEDS: TIOTROPIUM/OLODATEROL HCL (STIOLTO) 4 GM INHALER IH SCH (14:22)
[2024-07-01] MEDS: AZITHROMYCIN IVPB 500 MG/250 ML BAG IVPB SCH (21:23)
[2024-07-01] MEDS: PRAMIPEXOLE DIHYDROCHLORIDE 0.25 MG TABLET PO SCH (21:25)
[2024-07-01] MEDS: predniSONE 20 MG TABLET (UD) PO SCH (21:25)
[2024-07-02] MEDS: LIDOCAINE PATCH REMOVAL MC SCH (07:16)
[2024-07-02 09:05] LABS: CALCIUM 9.4 mg/dl (8.5-10.1); CREATININE 0.5 mg/dl (0.6-1.3); MAGNESIUM 1.9 mg/dL (1.8-2.4); PHOSPHOROUS 3.8 (2.5-4.9); POTASSIUM 4.6 mmol/L (3.5-5.1)
[2024-07-02 09:45] LABS: BASO % 0.1 % (0-2.0); HEMATOCRIT 40.1 % (32.4-45.2); HEMOGLOBIN 13.7 GM/dL (10.7-15.3); LYMPH % 9.5 % (8-40); MCH 29.9 pg (25.7-33.7); MCHC 34.2 g/dl (32.0-36.0); MEAN CELL VOLUME 87.4 fl (80-96); MEAN PLT VOLUME 9.2 fl (7.5-11.1); MONO % 6.5 % (3.8-10.2); NEUT % 83.9 % (42.8-82.8); PLATELET COUNT 165 10^3/uL (134-434); RBC 4.59 M/mm3 (3.60-5.2); RDW 12.7 % (11.6-15.6); WHITE BLOOD COUNT 5.9 K/mm3 (4.0-10.0)
[2024-07-02] MEDS: [UNRECOGNIZED DRUG - OTHER] IH SCH (10:05)
[2024-07-02] MEDS ORDERED: AZITHROMYCIN 250 MG TABLET PO ONE (17:58)
[2024-07-02 18:06] VITALS: BP 131/72; PULSE 70; RESP 19; TEMP 98
== END 2024-07-02 17:25 | disposition home or self-care (01) | DRG 190 ==
LOC: FER 17:42 → FM/S 21:16
PROVIDERS: ADMIT Internal Medicine; ATTEND Internal Medicine
DX: J44.1 Chronic obstructive pulmonary disease with (acute) exacerbation (principal); J18.9 Pneumonia, unspecified organism; F17.210 Nicotine dependence, cigarettes, uncomplicated
CPT/HCPCS: 0241U-QW; 36415; 71045-TC-FY; 71250-TC; 80048; 80053; 82803; 83735; 84100; 84484; 85025; 85027; 85610; 85730; 93005; 94640; 97116-GP; 97162-GP; 99285-25